=== PATIENT | male | born 1945 | race Caucasian/White ===

== ENCOUNTER 2020-10-28 09:47 | Inpatient (IN) ==
[2020-10-28 10:56] LABS: Basophils % 0.1 %; Eosinophils % 0.1 %; Hematocrit 34.9 % (37.5-50.1); Hemoglobin 11.2 g/dL (12.9-16.9); Immature Granulocytes % 0.6 % (0-4); Lymphocytes # 0.7 K/mcL (0.6-4.6); Lymphocytes % 10.4 %; Mean Corpuscular HGB Conc 32.1 g/dL (31.6-35.5); Mean Corpuscular Hemoglobin 30.9 pg (28.0-33.3); Mean Corpuscular Volume 96.1 fL (83.0-100.0); Mean Platelet Volume 10.4 fL (9.4-12.4); Monocytes # 0.7 K/mcL (0.0-1.3); Monocytes % 9.8 %; Neutrophils # 5.6 K/mcL (1.6-8.9); Platelet Count 167 K/mcL (140-400); Red Blood Count 3.63 M/mcL (4.19-5.50); Red Cell Distribution Width 14.5 % (11.5-14.5); White Blood Count 7.1 K/mcL (4.3-11.1)
[2020-10-28 11:35] LABS: Calcium 9.4 mg/dL (8.6-10.3); Troponin I 0.03 ng/mL (< 0.04)
[2020-10-28 11:54] LABS: Albumin 3.7 g/dL (3.5-5.7); Albumin/Globulin Ratio 1.4 (1.1-2.2); Bilirubin,Direct 0.2 mg/dL (0.0-0.2); Bilirubin,Indirect 0.6 mg/dL (0.0-1.0); Bilirubin,Total 0.8 mg/dL (0.3-1.0); Globulin 2.6 g/dL (2.4-3.5); Total Protein 6.3 g/dL (6.4-8.9)
[2020-10-28 12:27] LABS: Bilirubin,Urine Negative (Negative); Blood,Urine Large (Negative); Clarity,Urine Ex.Turbid (Clear); Color,Urine Dark-Orange (Yellow); Glucose,Urine (UA) 70 mg/dL (Normal); Ketones,Urine Negative (Negative); Leukocyte Esterase,Urine Large (Negative); Nitrite,Urine Negative (Negative); PH,Urine 5.5 pH Units (5.0-8.0); Protein,Urine 200 mg/dL (Neg-Trace); Specific Gravity,Urine 1.023 (1.010-1.025)
[2020-10-28 12:28] LABS: Bacteria,Urine Present per hpf (None-Few); RBC,Urine Present per hpf (0-3); WBC,Urine TNTC per hpf (0-3)
[2020-10-28 12:29] LABS: Amorphous Sediment,Urine Present per hpf (None-Few)
[2020-10-28] MEDS ORDERED: *HR* HYDROcodone/Acet 5/325 mg TABLET PO ONE (12:43)
[2020-10-28] MEDS ORDERED: levoFLOXacin 500 MG/100 ML 500 MG/100 ML BAG IVPB ONE (13:11)
[2020-10-28] MEDS ORDERED: Melatonin 3 MG TABLET PO PRN (13:52)
[2020-10-28] MEDS ORDERED: Mag Hydrox/Al Hydrox/Simeth 30 ML UDC PO PRN (13:52)
[2020-10-28] MEDS ORDERED: Naloxone 0.4 MG/ML INJ IVP PRN (13:52)
[2020-10-28] MEDS ORDERED: Ondansetron ODT 4 MG TAB.RAPDIS SL PRN (13:52)
[2020-10-28] MEDS ORDERED: MOM Conc 10 ML UD.LIQ PO PRN (13:52)
[2020-10-28] MEDS ORDERED: *HR* Dextrose 50 % in Water (Syg) 50 ML SYRINGE IVP PRN (13:55)
[2020-10-28] MEDS ORDERED: Dextrose Gel 15 GM/37.5 ML TUBE PO PRN ×2 (13:55)
[2020-10-28] MEDS ORDERED: D5% in Water 1,000 ML IVC PRN (13:55)
[2020-10-28] MEDS ORDERED: Insulin LISPRO 300 UNITS/3 ML VIAL SUBQ SCH (16:30)
[2020-10-28] MEDS: 0.9 % Sodium Chloride 1,000 ML IVC SCH (18:49)
[2020-10-28] MEDS: *HR* HYDROcodone/Acet 7.5/325 mg TABLET PO PRN (18:55)
[2020-10-28] MEDS ORDERED: Perflutren Lipid Microsphere 1.3 ML in 0.9 % Sodium Chloride 8.7 ML IVP PRN (19:06)
[2020-10-28] MEDS: carvediloL 25 MG TABLET PO SCH (20:04)
[2020-10-28] MEDS: Apixaban 5 MG TABLET PO SCH (20:04)
[2020-10-28] MEDS: Insulin LISPRO 300 UNITS/3 ML VIAL SUBQ SCH ×2 (20:34→20:39)
[2020-10-28 21:20] LABS: Estimated Average Glucose 212 mg/dl
[2020-10-28] MEDS: hydrALAZINE 25 MG TABLET PO SCH (21:20)
[2020-10-29] MEDS: *HR* HYDROcodone/Acet 7.5/325 mg TABLET PO PRN ×4 (00:55→20:09)
[2020-10-29 05:39] LABS: Hematocrit 36.9 % (37.5-50.1); Hemoglobin 12.1 g/dL (12.9-16.9); Mean Corpuscular HGB Conc 32.8 g/dL (31.6-35.5); Mean Corpuscular Hemoglobin 31.5 pg (28.0-33.3); Mean Corpuscular Volume 96.1 fL (83.0-100.0); Mean Platelet Volume 10.4 fL (9.4-12.4); Platelet Count 172 K/mcL (140-400); Red Blood Count 3.84 M/mcL (4.19-5.50); Red Cell Distribution Width 14.6 % (11.5-14.5); White Blood Count 7.3 K/mcL (4.3-11.1)
[2020-10-29 06:00] LABS: Alanine Aminotransferase 8 Units/L (7-52); Albumin 3.8 g/dL (3.5-5.7); Albumin/Globulin Ratio 1.5 (1.1-2.2); Alkaline Phosphatase 46 Units/L (34-104); Aspartate Amino Transferase 15 Units/L (13-39); BUN/Creatinine Ratio 21 (6-26); Bilirubin,Total 0.8 mg/dL (0.3-1.0); Blood Urea Nitrogen 28 mg/dL (8-23); Calcium 9.4 mg/dL (8.6-10.3); Carbon Dioxide 26 mEq/L (23-29); Chloride 102 mEq/L (98-107); Globulin 2.5 g/dL (2.4-3.5); Glucose 260 mg/dL (70-105); Osmolality,Calculated 296 (280-300); Potassium 3.8 mEq/L (3.5-5.1); Sodium 136 mEq/L (136-145); Total Protein 6.3 g/dL (6.4-8.9); eGFR For African Americans > 60 (> 60); eGFR For Non-African Americans 53 (> 60)
[2020-10-29] MEDS ORDERED: *HR* Enoxaparin 40 MG/0.4 ML SYRINGE SQ SCH (06:00)
[2020-10-29] MEDS: carvediloL 25 MG TABLET PO SCH ×2 (07:37→17:51)
[2020-10-29] MEDS: Aspirin Enteric Coated 81 MG Tablet PO SCH (07:37)
[2020-10-29] MEDS: Furosemide 20 MG TABLET PO SCH (07:37)
[2020-10-29] MEDS: *HR* Amiodarone 200 MG TABLET PO SCH (07:37)
[2020-10-29] MEDS: Apixaban 5 MG TABLET PO SCH ×2 (07:38→20:07)
[2020-10-29] MEDS: levoFLOXacin 750 MG/150 ML 750 MG/150 ML BAG IVPB SCH (07:39)
[2020-10-29] MEDS: Insulin LISPRO 300 UNITS/3 ML VIAL SUBQ SCH ×4 (07:40→21:20)
[2020-10-29] MEDS: BuPROPion XL (24 HR) 150 MG TABLET PO SCH (10:16)
[2020-10-29] MEDS: hydrALAZINE 25 MG TABLET PO SCH ×2 (10:17→20:08)
[2020-10-29] MEDS: 0.9 % Sodium Chloride 1,000 ML IVC SCH (11:42)
[2020-10-29] MEDS ORDERED: levoFLOXacin 500 MG/100 ML 500 MG/100 ML BAG IVPB SCH (13:00)
[2020-10-30 02:26] LABS: Basophils % 0.3 %; Eosinophils % 0.2 %; Hematocrit 36.8 % (37.5-50.1); Hemoglobin 11.7 g/dL (12.9-16.9); Immature Granulocytes % 0.6 % (0-4); Lymphocytes # 0.6 K/mcL (0.6-4.6); Lymphocytes % 10.2 %; Mean Corpuscular HGB Conc 31.8 g/dL (31.6-35.5); Mean Corpuscular Hemoglobin 30.7 pg (28.0-33.3); Mean Corpuscular Volume 96.6 fL (83.0-100.0); Mean Platelet Volume 10.5 fL (9.4-12.4); Monocytes # 0.6 K/mcL (0.0-1.3); Neutrophils # 4.9 K/mcL (1.6-8.9); Platelet Count 158 K/mcL (140-400); Red Blood Count 3.81 M/mcL (4.19-5.50); Red Cell Distribution Width 14.5 % (11.5-14.5); Segmented Neutrophils % 78.7 %; White Blood Count 6.2 K/mcL (4.3-11.1)
[2020-10-30 02:36] LABS: BUN/Creatinine Ratio 23 (6-26); Blood Urea Nitrogen 25 mg/dL (8-23); Calcium 9.2 mg/dL (8.6-10.3); Carbon Dioxide 26 mEq/L (23-29); Chloride 102 mEq/L (98-107); Glucose 259 mg/dL (70-105); Osmolality,Calculated 295 (280-300); Potassium 3.8 mEq/L (3.5-5.1); Sodium 136 mEq/L (136-145); eGFR For African Americans > 60 (> 60); eGFR For Non-African Americans > 60 (> 60)
[2020-10-30] MEDS: *HR* HYDROcodone/Acet 7.5/325 mg TABLET PO PRN (03:58)
[2020-10-30] MEDS: carvediloL 25 MG TABLET PO SCH (08:43)
[2020-10-30] MEDS: BuPROPion XL (24 HR) 150 MG TABLET PO SCH (08:43)
[2020-10-30] MEDS: Apixaban 5 MG TABLET PO SCH (08:44)
[2020-10-30] MEDS: *HR* Amiodarone 200 MG TABLET PO SCH (08:44)
[2020-10-30] MEDS: levoFLOXacin 750 MG/150 ML 750 MG/150 ML BAG IVPB SCH (08:45)
[2020-10-30] MEDS: Furosemide 20 MG TABLET PO SCH (08:45)
[2020-10-30] MEDS: hydrALAZINE 25 MG TABLET PO SCH (08:45)
[2020-10-30] MEDS: Aspirin Enteric Coated 81 MG Tablet PO SCH (08:48)
[2020-10-30] MEDS: Insulin LISPRO 300 UNITS/3 ML VIAL SUBQ SCH ×2 (08:48→13:03)
[2020-10-30] MEDS ORDERED: Insulin DETEMIR 100 UNIT/ML X5UNITS SUBQ SCH (10:15)
[2020-10-30 10:39] VITALS: BP 117/68; PULSE 66; TEMP 99.2; O2SAT 94
[2020-10-30] MEDS ORDERED: FLU Vac QV 21-22 (6Month+)/PF 0.5 ML SYRINGE IM ONE (11:48)
== END 2020-10-30 14:38 | disposition home or self-care (01) | DRG 728 ==
LOC: EMEROOARM 09:47 → 3ANU 09:47 → SUATTDRO 16:34 → 3ANU 17:59 → SUATTDRO 10-29 19:20
PROVIDERS: ADMIT General Practice; ATTEND Internal Medicine

== ENCOUNTER 2021-07-18 13:08 | Inpatient (IN) ==
[2021-07-18] MEDS ORDERED: Iopamidol - 370 500 ML MLS IVP ONE (14:06)
[2021-07-18 14:07] LABS: Basophils % 0.8 %; Eosinophils # 0.1 K/mcL (0.0-0.6); Eosinophils % 1.3 %; Hematocrit 39.9 % (37.5-50.1); Hemoglobin 13.2 g/dL (12.9-16.9); Immature Granulocytes % 0.2 % (0-4); Lymphocytes # 1.2 K/mcL (0.6-4.6); Lymphocytes % 25.7 %; Mean Corpuscular HGB Conc 33.1 g/dL (31.6-35.5); Mean Corpuscular Hemoglobin 31.4 pg (28.0-33.3); Mean Corpuscular Volume 94.8 fL (83.0-100.0); Monocytes # 0.4 K/mcL (0.0-1.3); Monocytes % 7.3 %; Neutrophils # 3.1 K/mcL (1.6-8.9); Platelet Count 157 K/mcL (140-400); Red Blood Count 4.21 M/mcL (4.19-5.50); Red Cell Distribution Width 13.9 % (11.5-14.5); Segmented Neutrophils % 64.7 %; White Blood Count 4.8 K/mcL (4.3-11.1)
[2021-07-18 14:32] LABS: Alanine Aminotransferase 10 Units/L (7-52); Albumin/Globulin Ratio 1.6 (1.1-2.2); Alkaline Phosphatase 42 Units/L (34-104); Aspartate Amino Transferase 13 Units/L (13-39); BUN/Creatinine Ratio 17 (6-26); Bilirubin,Direct 0.1 mg/dL (0.0-0.2); Bilirubin,Indirect 0.4 mg/dL (0.0-1.0); Bilirubin,Total 0.5 mg/dL (0.3-1.0); Blood Urea Nitrogen 25 mg/dL (8-23); Calcium 9.8 mg/dL (8.6-10.3); Carbon Dioxide 29 mEq/L (23-29); Chloride 104 mEq/L (98-107); Globulin 2.5 g/dL (2.4-3.5); Glucose 160 mg/dL (70-105); Osmolality,Calculated 296 (280-300); Sodium 139 mEq/L (136-145); Total Protein 6.5 g/dL (6.4-8.9); eGFR For African Americans 59 (> 60); eGFR For Non-African Americans 48 (> 60)
[2021-07-18 14:33] LABS: Troponin I < 0.03 ng/mL (< 0.04)
[2021-07-18 14:44] LABS: Influenza A PCR Negative (Negative); Influenza B PCR Negative (Negative); Lipase 20 Units/L (11-82); Resp. Syncytial Virus PCR Negative (Negative); SARS-CoV-2 by PCR (In House) Negative (Negative)
[2021-07-18 14:59] LABS: INR 1.1; Prothrombin Time 12.1 Seconds (9.4-12.1)
[2021-07-18 15:02] LABS: Activated Partial Thrombo Time 35.1 Seconds (26.0-36.0)
[2021-07-18] MEDS ORDERED: Furosemide 40 MG/4 ML VIAL IVP ONE (15:59)
[2021-07-18] MEDS ORDERED: Melatonin 3 MG TABLET PO PRN (16:23)
[2021-07-18] MEDS ORDERED: Ondansetron ODT 4 MG TAB.RAPDIS SL PRN (16:23)
[2021-07-18] MEDS ORDERED: Naloxone 0.4 MG/ML INJ IVP PRN (16:23)
[2021-07-18] MEDS ORDERED: Dextrose Gel 15 GM/37.5 ML TUBE PO PRN ×2 (16:35)
[2021-07-18] MEDS ORDERED: D5% in Water 1,000 ML IVC PRN (16:35)
[2021-07-18] MEDS ORDERED: *HR* Dextrose 50 % in Water (Syg) 50 ML SYRINGE IVP PRN (16:35)
[2021-07-18] MEDS ORDERED: MOM Conc 10 ML UD.LIQ PO PRN (16:43)
[2021-07-18 16:49] LABS: Phosphorous 2.2 mg/dL (2.7-4.5)
[2021-07-18 17:54] LABS: Bilirubin,Urine Negative (Negative); Blood,Urine Negative (Negative); Clarity,Urine Clear (Clear); Color,Urine Colorless (Yellow); Glucose,Urine (UA) >=1000 mg/dL (Normal); Ketones,Urine Negative (Negative); Leukocyte Esterase,Urine Negative (Negative); Mucus,Urine Few per lpf (None-Few); Nitrite,Urine Negative (Negative); PH,Urine 7.5 pH Units (5.0-8.0); Protein,Urine Negative (Neg-Trace); Specific Gravity,Urine 1.023 (1.010-1.025); Urobilinogen,Urine Normal (Normal); WBC,Urine 0-3 per hpf (0-3)
[2021-07-18] MEDS: Insulin LISPRO 300 UNITS/3 ML VIAL SUBQ SCH (18:32)
[2021-07-18] MEDS ORDERED: *HR* HYDROcodone/Acet 10/325 mg TABLET PO ONE (21:51)
[2021-07-18] MEDS: Sennosides/Docusate Sodium TABLET PO SCH (21:58)
[2021-07-19 01:58] LABS: Basophils % 0.4 %; Eosinophils # 0.1 K/mcL (0.0-0.6); Hemoglobin 14.4 g/dL (12.9-16.9); Immature Granulocytes % 0.3 % (0-4); Lymphocytes # 1.3 K/mcL (0.6-4.6); Lymphocytes % 18.4 %; Mean Corpuscular HGB Conc 32.7 g/dL (31.6-35.5); Mean Corpuscular Hemoglobin 30.9 pg (28.0-33.3); Mean Corpuscular Volume 94.4 fL (83.0-100.0); Mean Platelet Volume 10.4 fL (9.4-12.4); Monocytes # 0.5 K/mcL (0.0-1.3); Monocytes % 7.1 %; Neutrophils # 5.1 K/mcL (1.6-8.9); Platelet Count 187 K/mcL (140-400); Red Blood Count 4.66 M/mcL (4.19-5.50); Red Cell Distribution Width 14.1 % (11.5-14.5); Segmented Neutrophils % 72.8 %
[2021-07-19 02:11] LABS: Calcium 10.2 mg/dL (8.6-10.3); Chol/HDL Ratio 4.9 (0-4.9); Potassium 4.1 mEq/L (3.5-5.1)
[2021-07-19] MEDS: *HR* Heparin 5,000 UNIT/ML VIAL SQ SCH ×3 (05:54→20:37)
[2021-07-19] MEDS: Insulin LISPRO 300 UNITS/3 ML VIAL SUBQ SCH ×3 (08:14→16:47)
[2021-07-19 08:42] LABS: Estimated Average Glucose 200 mg/dl; Hemoglobin A1C 8.6 %
[2021-07-19] MEDS: *HR* HYDROcodone/Acet 7.5/325 mg TABLET PO PRN ×2 (08:59→20:37)
[2021-07-19] MEDS ORDERED: Furosemide 40 MG/4 ML VIAL IVP SCH (09:00)
[2021-07-19] MEDS: Aspirin Enteric Coated 81 MG Tablet PO SCH (10:01)
[2021-07-19] MEDS: *HR* Amiodarone 200 MG TABLET PO SCH (10:02)
[2021-07-19] MEDS: hydrALAZINE 25 MG TABLET PO SCH ×2 (10:04→20:37)
[2021-07-19] MEDS: carvediloL 25 MG TABLET PO SCH ×2 (10:04→20:37)
[2021-07-19] MEDS: Sennosides/Docusate Sodium TABLET PO SCH ×2 (10:05→20:37)
[2021-07-19] MEDS: Cholecalciferol (D-3) 1,000 UNIT (25MCG) TABLET PO SCH (10:06)
[2021-07-19] MEDS: BuPROPion XL (24 HR) 150 MG TABLET PO SCH (10:06)
[2021-07-19] MEDS: allopurinoL 100 MG TABLET PO SCH ×3 (10:07→20:37)
[2021-07-19] MEDS ORDERED: SODIUM CHLORIDE/NAHCO3/KCL/PEG 4,000 ML SOLN.RECON PO ONE (10:37)
[2021-07-19] MEDS: Albumin 25% 25gram/100mL 25 GM/100 ML IV.SOLN IVPB SCH (16:30)
[2021-07-19] MEDS ORDERED: Fluticasone Propionate Nasal 50 MCG/SPRAY BOTTLE NS PRN (17:25)
[2021-07-19] MEDS ORDERED: tiZANidine 4 MG TABLET PO PRN (17:25)
[2021-07-20] MEDS: Albumin 25% 25gram/100mL 25 GM/100 ML IV.SOLN IVPB SCH ×2 (00:58→08:15)
[2021-07-20 02:15] LABS: BUN/Creatinine Ratio 17 (6-26); Blood Urea Nitrogen 24 mg/dL (8-23); Calcium 10.2 mg/dL (8.6-10.3); Carbon Dioxide 25 mEq/L (23-29); Chloride 101 mEq/L (98-107); Glucose 195 mg/dL (70-105); Osmolality,Calculated 293 (280-300); Phosphorous 2.6 mg/dL (2.7-4.5); Sodium 137 mEq/L (136-145); eGFR For African Americans > 60 (> 60); eGFR For Non-African Americans 50 (> 60)
[2021-07-20] MEDS: *HR* HYDROcodone/Acet 7.5/325 mg TABLET PO PRN (04:49)
[2021-07-20] MEDS: *HR* Heparin 5,000 UNIT/ML VIAL SQ SCH (04:49)
[2021-07-20 07:19] VITALS: BP 132/75; PULSE 78; TEMP 98; O2SAT 96
[2021-07-20] MEDS: *HR* Amiodarone 200 MG TABLET PO SCH (08:01)
[2021-07-20] MEDS: Aspirin Enteric Coated 81 MG Tablet PO SCH (08:01)
[2021-07-20] MEDS: Cholecalciferol (D-3) 1,000 UNIT (25MCG) TABLET PO SCH (08:01)
[2021-07-20] MEDS: carvediloL 25 MG TABLET PO SCH (08:03)
[2021-07-20] MEDS: Sennosides/Docusate Sodium TABLET PO SCH (08:03)
[2021-07-20] MEDS: hydrALAZINE 25 MG TABLET PO SCH (08:03)
[2021-07-20] MEDS: allopurinoL 100 MG TABLET PO SCH (08:03)
[2021-07-20] MEDS: Insulin LISPRO 300 UNITS/3 ML VIAL SUBQ SCH (08:07)
[2021-07-20] MEDS: BuPROPion XL (24 HR) 150 MG TABLET PO SCH (08:15)
[2021-07-20] MEDS ORDERED: Furosemide 40 MG/4 ML VIAL IVP SCH (09:00)
[2021-07-20] MEDS ORDERED: Fenofibrate 54 MG TABLET PO SCH (09:00)
[2021-07-20] MEDS ORDERED: carvediloL 25 MG TABLET PO SCH (17:00)
== END 2021-07-20 12:03 | disposition home or self-care (01) | DRG 291 ==
LOC: 2ANU 13:08 → EMEROOARM 13:08 → SUATTDRO 16:29 → 2ANU 18:01
PROVIDERS: ADMIT Hospitalist; ATTEND Internal Medicine